=== PATIENT | male | born 1985 | race Caucasian/White ===

== ENCOUNTER 2023-03-01 10:10 | Observation (INO) | payer OTHER ==
[2023-03-01] VITALS (15 sets, daily range): BP systolic 141–166; BP diastolic 85–100
[~2023-03-01] VITALS: Ht 182.9 cm; Wt 94.4 kg
[2023-03-01 10:39] LABS: BASOPHILS ABSOLUTE AUTO 0.06 K/mm3 (0.00-0.23); BASOPHILS PERCENT AUTO 0 % (0-2); EOSINOPHILS ABSOLUTE AUTO 0.05 K/mm3 (0.00-0.68); EOSINOPHILS PERCENT AUTO 0 % (0-6); Hematocrit 49.6 % (37.0-53.0); Hemoglobin 17.2 g/dL (13.5-17.5); IMMATURE GRAN ABSOLUTE AUTO 0.08 K/mm3 (0.00-0.10); IMMATURE GRAN PERCENT AUTO 0 % (0-1); LYMPHOCYTES PERCENT AUTO 11 % (21-46); MONOCYTES ABSOLUTE AUTO 0.94 K/mm3 (0.16-1.47); MONOCYTES PERCENT AUTO 5 % (4-13); Mean Corpuscular HGB 28.8 pg (26.0-34.0); Mean Corpuscular HGB Conc 34.7 g/dL (31.5-36.5); Mean Corpuscular Volume 83 fL (80-100); Mean Platelet Volume 9.2 fL (9.1-12.4); NEUTROPHILS ABSOLUTE AUTO 16.05 K/mm3 (1.96-9.15); NEUTROPHILS PERCENT AUTO 83 % (41-73); Platelet Count 304 K/mm3 (150-400); RDW Coefficient Variation 12.2 % (11.7-14.2); Red Blood Cell Count 5.97 M/mm3 (4.30-5.90); White Blood Cell Count 19.38 K/mm3 (4.00-11.30)
[2023-03-01 12:07] LABS: Albumin, Blood 3.9 g/dL (3.4-5.0); Albumin/Globulin Ratio 0.9 (0.8-1.8); Bilirubin, Total 0.8 mg/dL (0.1-1.0); Bun/Creatinine Ratio 11.8 (12.0-20.0); Calcium, Blood 9.4 mg/dL (8.5-10.1); Creatinine, Blood 1.1 mg/dL (0.60-1.20); Globulin, Blood 4.3 g/dL (2.2-4.0); Total Protein, Blood 8.2 g/dL (6.4-8.2)
--- NOTE | 2023-03-01 14:30 | NUR ---
PT ARRIVED TO ROOM VIA STRETCHER, AND CHILD WITH PT. VSS, RATES PAIN AT 8/10, ORDERS RECEIVED FOR ANALGESIA. PT AND SPOUSE ORIENTED TO ROOM AND CALL LIGHT.
--- NOTE | 2023-03-01 16:22 | NUR ---
PT TO DAY SURGERY FROM SURGICAL FLOOR. PT AWAKE AND ALERT, ABLE TO MOVE SELF IN BED, BUT HAS PAIN WITH MOVEMENT. PLAN OF CARE DISCUSSED WITH PT AND , WHO IS AT BEDSIDE.
--- NOTE | 2023-03-01 16:23 | NUR ---
PT TO DAY SURGERY WITH 18G IN RIGHT AC
--- NOTE | 2023-03-01 19:06 | NUR ---
pt transferred back to room on stretcher, transferred himself to bed,a/o x 4, pleasant/cooperative, smiling, states he "feels so much better" following surgery. post op vs commenced and stable.
[2023-03-02 03:36] VITALS: BP 128/89
--- NOTE | 2023-03-02 04:45 | NUR ---
SHIFT SUMMARY POD 1 LAP APPY PT RESTED T/O NIGHT. PAIN MANAGED PER EMAR. PT VOIDED USED URINAL. PT PASSING SOME GAS. AT BEDSIDE ALL NIGHT. 3 LAP SITES, CLOSED WITH GLUE, C/D/I. ON RA FROM 1L NC SATTING ABOVE 95%. NO OTHER CONCERNS AT THIS TIME. CALL LIGHT WITHIN REACH
[2023-03-02 07:28] VITALS: BP 137/92
[2023-03-02] MEDS ORDERED: AMOCLA875 PO (15:17)
[2023-03-02] MEDS ORDERED: OXYC5 PO (15:17)
--- NOTE | 2023-03-02 15:20 | NUR ---
TOLERATED REGULAR LUNCH WELL, REPORTS HAVING ADEQUATE PAIN CONTROL WITH PO PAIN MEDS, PASSING FLATUS AND AMBULATING DOWN THE HALLS, DC'D HOME, DC INSTRUCTIONS GIVEN, VERBALIZED UNDERSTANDING.
[2023-03-02 15:24] VITALS: BP 140/98
== END 2023-03-02 16:13 | disposition home or self-care (01) ==
LOC: ER 10:10 → SURS 12:39
PROVIDERS: Physician Assistant; ADMIT Surgery
PROC: 0DTJ4ZZ Resection of Appendix, Percutaneous Endoscopic Approach (ICD-10-PCS; principal; 2023-03-01 15:30)
DX: K35.201 Acute appendicitis with generalized peritonitis, with perforation, without abscess (principal)
CPT/HCPCS: 74177; 80053; 83690; 85025; 88304; 96361; 96365; 96366; 96372; 96375; 96376; 99285-25; A9270; G0378; J1100; J1170; J1650; J1885; J2405; J2543; J2704; J3010; J7030; J7120; Q9967